=== PATIENT | female | born 1985 | race Caucasian/White ===

== ENCOUNTER 2024-04-18 18:05 | Emergency (ER) | payer OTHER, SELFPAY ==
[2024-04-18] VITALS (8 sets, daily range): BP systolic 108–122; BP diastolic 53–81; PULSE 95–118; RESP 18–29; TEMP 37.2–37.6; O2SAT 94–98; BMI 57.2
--- NOTE | 2024-04-18 18:31 | DI.RAD.S_ITS ---
PROCEDURE: XR CHEST 1V INDICATIONS: suspected sepsis TECHNIQUE: One view of the chest was acquired. COMPARISON: None. FINDINGS: Surgical changes and devices: None. Lungs and pleura: Lungs are clear. No pleural effusions or pneumothorax. Mediastinum: Mediastinal contours appear normal. Heart size is normal. Bones and chest wall: No suspicious bony lesions. Overlying soft tissues appear unremarkable. IMPRESSION: No acute cardiopulmonary abnormality is seen. Dictated by: Clay Pierce M.D. on 04/18/2024 at 17:51 Approved by: Clay Pierce M.D. on 04/18/2024 at 17:52
--- NOTE | 2024-04-18 18:31 | EKG_ITS ---
[address] [address] Test Date: 2024-04-18 Pat Name: Luanne Horowitz Department: [facility] Room: Gender: Female [employer]: SHI : 1985 Requested By: Order Number: [id number] Reading MD: Damion Bolanos Measurements Intervals [place] Rate: 99 P: 39 [place]: 156 QRS: -7 QRSD: 98 T: 32 QT: 348 QTc: 446 Interpretive Statements Normal sinus rhythm Electronically Signed On 04-20-2024 18:25:20 PDT by Damion Bolanos
[2024-04-18 18:54] LABS: Add Manual Diff / Slide Review NO; Basophils Absolute Auto 0 /uL (0-100); Basophils Percent Auto 0.4 % (0-2); Eosinophils Absolute Auto 200 /uL (0-450); Eosinophils Percent Auto 2.3 % (2-4); Hematocrit 33.2 % (36-46); Hemoglobin 11.2 g/dL (12.0-16.0); Lymphocytes Absolute Auto 1000 /uL (1100-4500); Lymphocytes Percent Auto 11.7 % (25-40); Mean Corpuscular HGB Conc 33.7 % (30-36); Mean Corpuscular Volume 82.9 fL (80-100); Monocytes Absolute Auto 600 /uL (0-900); Monocytes Percent Auto 7.7 % (3-14); Neutrophils Absolute Auto 6500 /uL (1500-7000); Neutrophils Percent Auto 77.9 % (50-75); Platelet Count 265 X10^3/uL (150-400); Red Blood Cell Count 4.01 X10^6/uL (4.0-5.2); Red Cell Distribution Width 16.2 % (11.6-14.8); White Blood Cell Count 8.4 X10^3/uL (4.5-11.0)
[2024-04-18 18:59] LABS: INR 1.1 (0.9-1.3); Prothrombin Time 12.6 SECONDS (9.4-12.5)
[2024-04-18 19:01] LABS: PTT Partial Thromboplastin Tim 32 SECONDS (25.1-36.5)
[2024-04-18 19:02] LABS: Lactate (Lactic Acid) 1.6 mmol/L (0.7-2.1)
[2024-04-18 19:03] LABS: Alanine Aminotransferase 17 IU/L (<35); Albumin 4.2 g/dL (3.5-5.0); Albumin Globulin Ratio 1.4 (1.0-2.8); Alkaline Phosphatase 71 U/L (38-126); Aspartate Aminotransferase 18 IU/L (14-36); BUN Creatinine Ratio 15.7 (6-22); Bilirubin Total 0.6 mg/dL (0.2-1.3); Blood Urea Nitrogen 13 mg/dL (7-17); Calcium 8.5 mg/dL (8.4-10.2); Carbon Dioxide 25 mmol/L (22-32); Chloride 104 mmol/L (98-107); Estimated Glomerular Filt Rate > 60 mL/min (>60); Globulin 3.1 g/dL (1.7-4.1); Glucose 114 mg/dL (70-100); HEMOLYSIS < 15 (0-50); Lipase 52 U/L (23-300); Potassium 3.7 mmol/L (3.4-5.1); Sodium 137 mmol/L (137-145); Total Protein 7.3 g/dL (6.3-8.2)
--- NOTE | 2024-04-18 19:26 | ED.FEMALEGU ---
HPI - Female Genitourinary General Chief complaint: Urogenital-Female Stated complaint: Think I have Kidney Infection Time Seen by Provider: 04/18/24 19:14 Source: patient Mode of arrival: Ambulatory History of Present Illness HPI Narrative: 38-year-old female with history of urinary tract infections, since childhood, one earlier this year in 2023, she believes she had three in 2022, does not use prophylactic antibiotics, does not self catheter have indwelling catheter, does not use antibiotics postcoital, now with 3 days duration of increasing dysuria, some left flank pain, some suprapubic area discomfort, and fever today measured 100.4 at home. No nausea or vomiting. No diarrhea. No black or red stools. No injury trauma new activities. Has ongoing dry cough for the last few weeks, that seems to be generally getting better. She denies chest pain, denies shortness of breath. She does not have recent vaginal bleeding, does not believe herself to be . Denies history of pelvic infections, chlamydia, gonorrhea infections. Related Data Previous Rx's Medication Instructions Recorded cefdinir 300 mg capsule 300 mg PO BID 10 days #20 caps 04/18/24 Allergies Allergy/AdvReac Type Severity Reaction Status Date / Time hydrocodone AdvReac Vomiting Verified 04/18/24 18:26 Review of Systems Review of Systems Narrative: Per HPI Patient History Substance Use Type: does not use Exam Narrative Exam Narrative: GENERAL: Well-developed patient, in mild distress. HEAD: Atraumatic. Normocephalic. EYES: Pupils equal round and reactive. Extraocular motions intact. No scleral icterus. No injection or drainage. ENT: Nose without bleeding, purulent drainage. Throat without erythema, tonsillar hypertrophy or exudate. Airway patent. NECK: Trachea midline. Non tender CARDIOVASCULAR: Regular rate and rhythm without murmurs, gallops, or rubs. RESPIRATORY: Clear to auscultation. Breath sounds equal bilaterally. No wheezes, rales, or rhonchi. GASTROINTESTINAL: Abdomen soft, non-tender, nondistended. EXTREMITIES: No edema or joint tenderness. BACK: Nontender without deformity or crepitance. No flank tenderness right or left. NEURO: AOx3. SKIN: No rash or erythema of visible areas Initial Vital Signs Initial Vital Signs: Vital Signs Temperature 99 F 04/18/24 18:26 Pulse Rate 114 H 04/18/24 18:26 Respiratory Rate 18 04/18/24 18:26 Blood Pressure 117/58 L 04/18/24 18:26 Pulse Oximetry 98 04/18/24 18:26 Oxygen Delivery Method Room Air 04/18/24 18:26 Course Orders Ordered: Discontinued Medications Sodium Chloride (Normal Saline 0.9%) 1,000 mls @ 1,000 mls/hr IV BOLUS ONE Stop: 04/18/24 19:30 Last Infusion: 04/18/24 20:43 Dose: Infused Documented By: Admin: 04/18/24 19:43 Dose: 1,000 mls/hr Documented By: KEYON Sodium Chloride (Normal Saline 0.9%) 1,000 mls @ 1,000 mls/hr IV BOLUS ONE Stop: 04/18/24 20:23 Ceftriaxone Sodium 1,000 mg/ (Sodium Chloride) 100 mls @ 200 mls/hr IV NOW ONE Stop: 04/18/24 20:18 Last Infusion: 04/18/24 20:58 Dose: Infused Documented By: Admin: 04/18/24 20:28 Dose: 200 mls/hr Documented By: KEYON Ketorolac Tromethamine (Ketorolac 30 Mg/Ml Vial) 15 mg IV NOW ONE Stop: 04/18/24 19:25 Last Admin: 04/18/24 20:02 Dose: 15 mg Documented By: KEYON Ondansetron HCl (Ondansetron 4 Mg/2 Ml Inj) 4 mg IV NOW PRN PRN Reason: Nausea And Vomiting Ondansetron HCl (Ondansetron 4 Mg Odt) 4 mg SL NOW PRN PRN Reason: Nausea And Vomiting Tramadol HCl (Tramadol 50 Mg Prepack) 1 bottle MISC DIRECTED ONE Stop: 04/18/24 20:06 Last Admin: 04/18/24 20:29 Dose: 1 bottle Documented By: KEYON Vital Signs Vital signs: Vital Signs - 8 hr 04/18/24 18:26 Temperature 99 F Pulse Rate 114 H Respiratory Rate 18 Blood Pressure 117/58 L Pulse Oximetry 98 Oxygen Delivery Method Room Air MDM - Female Genitourinary Lab Data Attestation: I reviewed the patient's lab results. Lab results narrative: Normal white blood cell count, CMP, serum CO2, lactate. Urinalysis pending 04/18/24 18:40 04/18/24 18:40 Labs: Lab Results 04/18/24 Range/Units 18:40 WBC 8.4 (4.5-11.0) X10^3/uL RBC 4.01 (4.0-5.2) X10^6/uL Hgb 11.2 L (12.0-16.0) g/dL Hct 33.2 L (36-46) % MCV 82.9 (80-100) fL MCH 28.0 (26-34) PG MCHC 33.7 (30-36) % RDW 16.2 H (11.6-14.8) % Plt Count 265 (150-400) X10^3/uL Neut % (Auto) 77.9 H (50-75) % Lymph % (Auto) 11.7 L (25-40) % [place] % (Auto) 7.7 (3-14) % Eos % (Auto) 2.3 (2-4) % Baso % (Auto) 0.4 (0-2) % Neut # (Auto) 6500 (9406-9057) /uL Lymph # (Auto) 1000 L (6344-0882) /uL [place] # (Auto) 600 (0-900) /uL Eos # (Auto) 200 (0-450) /uL Baso # (Auto) 0 (0-100) /uL PT 12.6 H (9.4-12.5) SECONDS INR 1.1 (0.9-1.3) APTT 32 (25.1-36.5) SECONDS Sodium 137 (137-145) mmol/L Potassium 3.7 (3.4-5.1) mmol/L Chloride 104 (98-107) mmol/L Carbon Dioxide 25 (22-32) mmol/L BUN 13 (7-17) mg/dL Creatinine 0.83 (0.52-1.04) mg/dL Estimated GFR > 60 (>60) mL/min BUN/Creatinine Ratio 15.7 (6-22) Glucose 114 H (70-100) mg/dL Lactate 1.6 (0.7-2.1) mmol/L Calcium 8.5 (8.4-10.2) mg/dL Total Bilirubin 0.6 (0.2-1.3) mg/dL AST 18 (14-36) IU/L ALT 17 (<35) IU/L Alkaline Phosphatase 71 (38-126) U/L Total Protein 7.3 (6.3-8.2) g/dL Albumin 4.2 (3.5-5.0) g/dL Globulin 3.1 (1.7-4.1) g/dL Albumin/Globulin Ratio 1.4 (1.0-2.8) Lipase 52 (23-300) U/L Procalcitonin 0.300 (<0.5) ng/mL HCG, Quant < 2.39 mIU/mL Urine Color Yellow Urine Appearance Clear Urine pH 6.5 (4.5-8.0) Ur Specific [place] 1.010 (1.000-1.035) Urine Protein Trace H (Negative) Urine Glucose (UA) Negative (Negative) g/dL Urine Ketones Negative (NEGATIVE) Urine Occult Blood Trace-intact (Negative) Urine Nitrate Positive H (Negative) Urine Bilirubin Negative (NEGATIVE) Urine Urobilinogen 1.0 (0.2) E.U./dL Ur Leukocyte Esterase 2+ H (NEGATIVE) Urine RBC 1-5/hpf (0-5/HPF) Urine WBC 5-10/hpf H (0-5/HPF) Ur Squamous Epith Cells 0-1 /hpf (0-5/HPF) Urine Bacteria Many (>30) H (None) Ur Culture Indicated? Specimen cultured Vol Urine Centrifuged 10ml (spun) MDM Narrative Medical decision making narrative: 38-year-old obese female with BMI 57, history of recurrent urinary tract infections, last urinary infection 5 months ago, now with recent dysuria, left flank pain, measured fever 100.4 at home. Symptoms concerning for left-sided pyelonephritis. No history of known kidney stones. No history of urinary stenting or urinary surgical interventions. Labs show normal white blood cell count, normal lactate, HCG neg, urinalysis and pending. IV fluid bolus. Blood culture sent. IV ceftriaxone after urine collected. Urinalysis shows pyuria and bacteriuria, urine culture requested. Seems consistent with pyelonephritis. IV ceftriaxone given, IV fluids given, heart rate improved now 90s, hemodynamically stable. No history of kidney stones known, we will hold on advanced imaging at this time, patient agreeable. Discharge home on cefdinir Critical Care Time Critical Care Time Critical Care Time: Yes Total Critical Care Time: 31 Attestation: The high probability of a clinically significant, sudden or life threatening deterioration of the [abdominopelvic, genitourinary] system(s) required my full and direct attention, intervention and personal management. The aggregate critical care time was [31] minutes. This time is in addition to time spent performing reported procedures but includes the following: [x] Data Review and interpretation [x] Patient assessment and monitoring of vital signs [x] Documentation [x] Medication orders and management Discharge Plan Departure Patient Disposition: Home Clinical Impression: Urinary tract infection, Pyelonephritis of left kidney Instructions: DI for Kidney Infection, DI for Urinary Tract Infection (UTI) Activity Restrictions/Additional Instructions: Urinary tract history, typical recent symptoms, also some left flank pain, fever noted recent, increased heart rate, blood pressure good, urinalysis did show bacteria and inflammatory cells consistent with urinary tract infection, IV antibiotics initiated. Further oral antibiotics cefdinir, sent to your pharmacy for 10 day course. Take pain medications ibuprofen and Tylenol as needed. Home pack of tramadol to use if it were needed for additional pain control. Recheck with your regular provider in the next couple of days to review symptoms and your urine culture. Discussion of advanced imaging such as CT abdomen and pelvis, no history of kidney stones however, clinically we will treat as left pyelonephritis kidney infection given typical symptoms and previous history. If you were to have change worsening symptoms then advanced imaging might be indicated. Recheck when this/nearest emergency department for any change worsening symptoms or any concerns prior to your outpatient close follow up visit. Drink plenty of fluids. Prescriptions: New cefdinir 300 mg capsule 300 mg PO BID 10 Days Qty: 20 0RF Stand Alone Forms: Patient Portal/API
[2024-04-18 19:33] LABS: Appearance Urine UA CLEAR; Bilirubin Urine UA NEGATIVE (NEGATIVE); Color Urine UA YELLOW; Glucose Urine UA NEGATIVE (Negative); Ketones Urine UA NEGATIVE (NEGATIVE); Leukocyte Esterase Urine UA 2+ (NEGATIVE); Nitrite Urine UA POSITIVE (Negative); Occult Blood Urine UA TRACE-INTACT (Negative); Protein Urine UA TRACE (Negative); Urine Volume 10mL (spun); pH Urine UA 6.5 (4.5-8.0)
[2024-04-18 19:36] LABS: Bacteria Urine Many (>30); Culture Indicated Urine Specimen Cultured; RBC Urine 1-5/HPF (0-5/HPF); Squamous Epithelial Cell Urine 0-1 /HPF (0-5/HPF); WBC Urine 5-10/HPF (0-5/HPF)
[2024-04-18] MEDS: SODIUM CHLORIDE 0.9% 1,000 ML 1000 ML IV (19:43)
[2024-04-18 20:01] LABS: HCG Quantitative /Beta subunit < 2.39 mIU/mL
[2024-04-18] MEDS: KETOROLAC 30 MG/ML VIAL 15 MG IV (20:02)
[2024-04-18] MEDS: cefTRIAXone 1,000 MG in SODIUM CHLORIDE 0.9% 100 ML 200 MG IV (20:28)
[2024-04-18] MEDS: TRAMADOL 50 MG PREPACK 1 BOTTLE MISC (20:29)
== END 2024-04-18 21:16 | disposition home or self-care (01) ==
PROVIDERS: Emergency Provider Emergency Medicine
DX: N39.0 Urinary tract infection, site not specified (principal); N12 Tubulo-interstitial nephritis, not specified as acute or chronic
CPT/HCPCS: 36415; 71045; 80053; 81001; 83605; 83690; 84145; 84702; 85025; 85610; 85730; 87040; 87077; 87086; 87186; 93005; 96365; 96375; 99284; J0696; J1885